=== PATIENT | female | born 1945 | race Caucasian/White ===

== ENCOUNTER 2018-03-31 13:15 | Day surgery (SDC) | payer MEDICARE, SELFPAY ==
[2018-03-31] VITALS (7 sets, daily range): BP systolic 93–142; BP diastolic 47–72; PULSE 48–70; RESP 10–16; TEMP 36.2–36.4; O2SAT 96–100; BMI 22.6
--- NOTE | 2018-03-31 12:48 | PM.PREOP ---
Pre-operative Note Interval Note Pre-op Check: History & Physical exam performed today ASA Class (for procedural sedation): II
--- NOTE | 2018-03-31 12:48 | PM.HP.1 ---
History of Present Illness Chief complaint: [id number] COLONOSCOPY Narrative: Ms. Figueredo is a 72-year-old woman who presented with a positive Cologuard test. She has no other symptoms. She has a strong family history of colon cancer with 1 brother having been diagnosed but no one else in the family. She has a personal history of uterine cancer stage IB and feels as if she may have ?a lot of adhesions?. 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 She has never had a colonoscopy Patient History Medical History Chylous ascites (Acute) Hyperlipidemia (Acute) Hypertension (Acute) Spontaneous pneumothorax (Acute) Uterine cancer (Acute) Surgical History H/O hysterectomy with oophorectomy (Acute) H/O pyloroplasty (Acute) Exam Narrative Exam Narrative: HEENT normocephalic, pupils round and reactive to light. Chest clear to auscultation percussion Neck supple without adenopathy or thyromegaly Cardiac exam reveals no S3 or murmur Abdomen soft, nontender, intact bowel sounds, no clear hepatosplenomegaly Extremities without cyanosis clubbing or edema Assessment & Plan Plan: Assessment/Plan Narrative: 1. Positive Cologuard test Certainly Ms. White needs colonoscopy at this point. Risks, benefits, alternatives have been explained. We will schedule this with anesthesia because of the worry about adhesions and being sedated enough.
--- NOTE | 2018-03-31 12:54 | PM.DS.1 ---
History of Present Illness Chief complaint: [id number] COLONOSCOPY Narrative: Ms. Figueredo is a 72-year-old woman who presented with a positive Cologuard test. She has no other symptoms. She has a strong family history of colon cancer with 1 brother having been diagnosed but no one else in the family. She has a personal history of uterine cancer stage IB and feels as if she may have ?a lot of adhesions?. 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 She has never had a colonoscopy Discharge Providers Discharge provider: Sowmya Hemphill MD Discharge Plan Discharge Plan Patient Disposition: Home, Self-Care Discharge comment: Follow-up colonoscopy Discharge Med Rec/Prescriptions Prescriptions: No Action aspirin [Aspir-81] 81 mg Tablet,Delayed Release (Dr/Ec) 81 mg PO DAILY RF: 0 losartan 25 mg Tablet 25 mg PO DAILY RF: 0 Discharge Orders: Discharge (Order); Ordered 03/31/18 Ordered By: Sowmya Hemphill Provider Discharge Instructions Diet: Diet as Tolerated Visit Report/Discharge Packet Stand Alone Forms: Surgery Discharge Discharge Data Primary Care Provider: Pawan Gabriel Attending Provider: Sowmya Hemphill
--- NOTE | 2018-03-31 12:56 | P.OP.ENDO_ITS ---
Operative Date/Time/Diagnoses - Date of procedure: 03/31/18 Time of procedure: 12:55 Pre-op diagnosis: Positive Cologuard Post-op diagnosis: same Procedure & Clinicians Study performed: Colonoscopy under anesthesia Same procedure as scheduled: Yes Surgeon: Sowmya Hemphill Procedure Notes Procedure in detail: After informed consent was obtained the patient was placed on left lateral decubitus position. The video colonoscope was induced the rectum slowly advanced Attempting to reach the cecum. Sigmoid colon was very tortuous and patient was uncomfortable despite 100 mcg of fentanyl and 8 mg of Versed. Therefore anesthesia was called to help with sedation as she was still quite awake. Subsequently, propofol was used.On slow withdrawal mucosa was carefully examined. The scope was removed the patient tolerated the procedure well . Blood loss none Complications none Findings 1. Mild sigmoid diverticulosis 2. Excessive tortuosity throughout the colon but particularly in the left colon. This included the big splenic flexure loop. 3. Otherwise negative colonoscopy to the cecum. The Cologuard test was a false positive. I think that collect needs follow-up with further stool testing in 3 years. Or , alternatively she could have colonoscopy in 10 years. Scope withdrawal time: 10 minutes Sedation minutes: 20 Recommendations: Colonscopy in 10 years
[2018-03-31] MEDS: SODIUM CHLORIDE 0.9% 1,000 ML 42 ML IV (13:46)
[2018-03-31] MEDS: fentaNYL 100 MCG/2 ML INJ IV (14:41)
[2018-03-31] MEDS: MIDAZOLAM 5 MG/5 ML VIAL IV (14:43)
--- NOTE | 2018-03-31 14:44 | SUR.OPER ---
Pt. difficult to sedate, Dr. Jeffrey came in at [address] Hemphill
== END 2018-03-31 16:14 | disposition home or self-care (01) ==
PROVIDERS: PCP Internal Medicine; Visit Provider Internal Medicine Gastroenterology
PROC: 0DJD8ZZ Inspection of Lower Intestinal Tract, Via Natural or Artificial Opening Endoscopic (ICD-10-PCS; CPT 45378; principal; 2018-03-31 15:00)
DX: R19.5 Other fecal abnormalities (principal); K57.30 Diverticulosis of large intestine without perforation or abscess without bleeding
CPT/HCPCS: 45378; J2250; J2704; J3010

== ENCOUNTER → 2024-01-15 | Outpatient (CLI) | payer MEDICARE, OTHER, SELFPAY ==
--- NOTE | 2024-01-15 07:52 | DI.ECHO.S_ITS ---
[facility] +---------+ [facility] +---------+ : : [address] : : : : [id number] : : : : Phone: [phone]+ Echocardiogram Report + + :Name: LOUANN PRESCOTT Study Date: 01/15/2024 Height: 64 in : :[facility] ReadingLocation: Weight: 135 lb : : Gender: Female BSA: 1.7 m2 : :: 1945 Age: 78 yrs BP: 137/79 mmHg: :Reason For Study: CARDIAC MURMUR : :Ordering Physician: : :LORELEI GALLARDO Performed By: Corina Bryant : :Referring: LORELEI GALLARDO : + + Interpretation Summary The ejection fraction is estimated to be 50-55%. Diastolic function could not be accurately assessed due to unobtainable data. The left atrium is mildly dilated. The right ventricle is normal in size and function. There is mild mitral regurgitation. There is trace aortic regurgitation. Pulmonary artery pressures cannot be estimated because of the lack of a measurable TR jet velocity but the IVC suggests a CVP of around 3 mmHg. Procedure: A two-dimensional transthoracic echocardiogram with color flow and Doppler was performed. The study quality was technically adequate. There is no prior echocardiogram noted for this patient. The patient was in sinus rhythm with heart rates between 61-77 bpm during the exam. Left Ventricle: The left ventricle is normal in size and wall thickness. The ejection fraction is estimated to be 50-55%. Diastolic function could not be accurately assessed due to unobtainable data. Right Ventricle: The right ventricle is normal in size and function. Atria: The left atrium is mildly dilated. The right atrium is mildly dilated. There is no Doppler evidence for an interatrial shunt. Mitral Valve: The mitral valve is normal. There is mild mitral regurgitation. Aortic Valve: The aortic valve is trileaflet. The aortic valve is mildly calcified. The peak aortic velocity is 2.2 m/sec. The aortic valve mean gradient is 11 mmHg. There is no hemodynamically significant valvular aortic stenosis. There is trace aortic regurgitation. Tricuspid Valve: The tricuspid valve is normal in structure and function. There is trace tricuspid regurgitation. Pulmonary artery pressures cannot be estimated because of the lack of a measurable TR jet velocity but the IVC suggests a CVP of around 3 mmHg. Pulmonic Valve: The pulmonic valve leaflets are thin and pliable; valve motion is normal. There is no pulmonic valvular regurgitation. Great Vessels: The aortic root is normal size. The dimensions of the ascending aorta are normal. The IVC is of normal diameter and collapses greater than 50% with a sniff. This suggests a low right atrial pressure of 3 mm Hg. Pericardium/ Pleura There is no pericardial effusion. There is no pleural effusion. MMode/2D Measurements & Calculations LVIDd: 5.3 cm LVOT diam: 2.2 cm LVIDs: 3.8 cm Ao root diam: 3.3 cm FS: 28.7 % asc Aorta Diam: 3.3 cm EPSS: 0.60 cm Ao Arch Diam (Prox Trans): 2.3 cm IVSd: 0.77 cm LVPWd: 0.78 cm LV dowd. diameter/BSA (cm/m^2): 3.2 LV sys. diameter/BSA (cm/m^2): 2.3 LA A2 area: 20.3 cm2 RA long axis: 5.7 cm LA A4 area: 19.1 cm2 RA area: 19.5 cm2 LA length (vol): 5.3 cm RA vol: 56.5 ml LA vol: 62.4 ml RA : 34.2 ml/m2 LA vol index: 37.7 ml/m2 IVC diam: 1.0 cm RVD1 (basal): 3.6 cm RVD2 (mid): 2.6 cm TAPSE: 2.1 cm Doppler Measurements & Calculations Ao V2 max: 222.3 cm/sec LVOT Max Sudeep: 75.9 cm/sec Ao V2 mean: 156.7 cm/sec LV V1 max P.3 mmHg Ao max P.2 mmHg LV V1 VTI: 18.3 cm Ao mean P.3 mmHg MARJORIE(I,D): 1.3 cm2 Ao V2 VTI: 50.5 cm MARJORIE(V,D): 1.3 cm2 sev ratio: 0.36 MARJORIE indexed to BSA (cm^2/m^2): 0.80 MV E max sudeep: 49.5 cm/sec PA V2 max: 109.4 cm/sec MV A max sudeep: 89.4 cm/sec PA V2 mean: 77.3 cm/sec MV E/A: 0.55 PA mean P.7 mmHg Med Peak E' Sudeep: 5.0 cm/sec PA pr(Accel): 43.0 mmHg E/E' med: 9.9 Lat Peak E' Sudeep: 6.0 cm/sec E/E' lat: 8.2 E/e' average: 9.0 MV dec time: 0.26 sec [facility] 67.2 ml Reading Physician:04:51 PM
== END ==
LOC: ECHO 07:51
PROVIDERS: PCP Nurse Practitioner Family; Referring Provider Nurse Practitioner Family; Visit Provider Nurse Practitioner Family
DX: I34.0 Nonrheumatic mitral (valve) insufficiency (principal); R01.1 Cardiac murmur, unspecified; R07.89 Other chest pain; R00.2 Palpitations
CPT/HCPCS: 93306

== ENCOUNTER → 2024-06-22 07:21 | Outpatient (CLI) | payer MEDICARE, OTHER, SELFPAY ==
--- NOTE | 2024-06-22 07:22 | DI.NM.S_ITS ---
PROCEDURE: NM LIZA PERF SPECT REST & STR Rest and exercise myocardial perfusion SPECT with gated imaging and ejection fraction RADIOPHARMACEUTICAL: 26.8 mCi Tc-99m sestamibi IV at rest and 25.5 mCi Tc-99m sestamibi IV at peak exercise. A 2 day-protocol was performed. INDICATIONS: PREMATURE VENTRICULAR CONTRACTION PQRS ATTESTATIONS: Measure 322 - Is this imaging test primarily performed on a low-risk surgery patient for preoperative evaluation within 30 days preceding their low-risk non-cardiac surgery? Low-risk surgery is defined as cardiac or myocardial infarction less than 1%, including (but not limited to) endoscopic procedures, superficial procedures, cataract surgery, and excisional breast surgery: Answer: No Measure 323 - Is this imaging test performed primarily for the monitoring of an asymptomatic patient who had percutaneous coronary intervention on the visit date or within 2 years of the visit date? Answer: No Measure 324 - Is this imaging test performed primarily for the initial detection and risk assessment on an asymptomatic, low coronary heart disease patient? Low CHD risk definition = clinicians should consider the maximum number of available patient factors used to estimate risk based on [place] (ATP III criteria), typically age, gender, diabetes, smoking status, and use of blood pressure medication, and integrate age appropriate estimates for missing elements, such as LDL or standard blood pressure. Answer: No TECHNIQUE: Radiopharmaceutical was injected at peak stress test, and also at rest. SPECT images were obtained. SPECT myocardial perfusion images were displayed in short axis, horizontal long axis, and vertical long axis views. Gated images were reviewed using [employer] software. COMPARISON: None. CARDIAC STRESS: A standard Raymond treadmill exercise tolerance test was performed by the patient under the supervision of an attending staff. The patient exercised for 5 minutes and 50 seconds; functional aerobic impairment (KARLA) is -21%. Hemodynamic data: There is normal blood pressure and heart rate response to exercise stress. Patient achieved maximal heart rate of 207 bpm which was 148% of maximum predicted heart rate at peak exercise. Symptoms: Patient developed chest pains during episode of paroxysmal supraventricular tachycardia.. EKG: Short RP tachycardia noted at 4 minutes and 48 seconds during stress portion. It spontaneously converted to sinus rhythm at 1 minute and 0 seconds into recovery. There were horizontal ST depressions noted at 5 minutes and 38 seconds in the stress phase with normalization of the ST segments at 33 seconds into recovery. Frequent PVCs were noted during the stress phase as well as rest phase. FINDINGS: Raw data: There is good myocardial labeling by radiotracer. No significant motion artifacts. Ymqa-[id number] ratio is 0.33 (normal is less than 0.38 for sestamibi tracer, and less than 0.50 for thallium tracer). Left ventricle function: Gated images demonstrate normal left ventricle wall thickening. No segmental wall motion abnormality. No transient ischemic dilation; TID is 1.03 (normal less than 1.3). The left ventricle resting end-diastolic volume is 123 mL. Left ventricle stress ejection fraction is 70; normal values are above 45%. Myocardial perfusion: There was slight hypoperfusion at the anterior segment in the stress images. However there were no perfusion defects noted in the rest nor prone images. IMPRESSION: 1. Negative exercise myocardial perfusion scan in terms of ischemia and infarction. 2. Exercise-induced short RP tachycardia. Dictated by: Mark Rangel M.D. on 06/23/2024 at 16:56 Approved by: Mark Rangel M.D. on 06/23/2024 at 17:00
== END ==
LOC: NUCM 07:21
PROVIDERS: PCP Nurse Practitioner Family; Referring Provider Internal Medicine Cardiovascular Disease; Visit Provider Internal Medicine Cardiovascular Disease
DX: I49.3 Ventricular premature depolarization (principal); R00.0 Tachycardia, unspecified
CPT/HCPCS: 78452; 93017; A9502